=== PATIENT | female | born 1995 | race African-American/Black ===

== ENCOUNTER 2020-01-20 14:36 | Emergency (ER) | payer MEDICAID, OTHER ==
[~2020-01-20] VITALS: Ht 172.7 cm; Wt 72.6 kg
[2020-01-20 16:47] VITALS: BP 91/70
[2020-01-20 17:03] LABS: Urine Bacteria FEW /hpf (None Seen); Urine Blood 2+ /uL (Negative); Urine Mucus FEW (None Seen); Urine Specific Gravity 1.023 (1.001-1.035); Urine WBC 1 /hpf (0 - 5)
[2020-01-20] MEDS ORDERED: PHENAZOPYRIDINE HCL 100 MG TAB PO ONE (17:15)
== END 2020-01-20 17:37 | disposition home or self-care (01) ==
LOC: ER 14:36
DX: N39.0 Urinary tract infection, site not specified (principal); Z32.02 Encounter for pregnancy test, result negative
CPT/HCPCS: 81001; 81025